=== PATIENT | male | born 1995 | race Caucasian/White ===

== ENCOUNTER → 2023-08-02 17:01 | Outpatient (BNVA) | payer BC, SELFPAY | PROVIDERS: Visit Provider Registered Nurse Neonatal Intensive Care | DX: R19.7 Diarrhea, unspecified (principal) | CPT/HCPCS: 87045; 87427; 87449 ==

== ENCOUNTER → 2024-09-04 08:36 | Outpatient (BNVA) | payer MEDICAID, SELFPAY | PROVIDERS: PCP Family Medicine; Visit Provider Family Medicine | DX: Z13.6 Encounter for screening for cardiovascular disorders (principal); N50.89 Other specified disorders of the male genital organs | CPT/HCPCS: 80053; 80061; 84403; 84439; 84443; 85025 ==